=== PATIENT | male | born 1995 | race Caucasian/White ===

== ENCOUNTER 2016-06-27 15:42 | Emergency (ER) | payer OTHER ==
[~2016-06-27] VITALS: Ht 177.8 cm; Wt 130.9 kg
[2016-06-27 19:36] LABS: EOSINOPHIL (%) 0.9 % (0-5); EOSINOPHIL COUNT 0.1 K/uL (0-0.3); HEMATOCRIT 46.7 % (38.0-50.0); IMMATURE GRANULOCYTE (%) 0.7 % (0.0-0.7); IMMATURE GRANULOCYTE COUNT 0.1 K/uL; INSTRUMENT ABS NEUTROPHIL CT 8.4 K/uL; LYMPHOCYTE COUNT 2.8 K/uL (1.0-2.8); MCV 79.3 FL (86-99); MEAN PLAT.VOLUME 9.7 uM^3 (9.0-12.4); MONOCYTE (%) 11.2 % (3-12); MONOCYTE COUNT 1.4 K/uL (0-0.8); NEUTROPHIL (%) 65.1 % (45-76); NEUTROPHIL COUNT 8.4 K/uL (1.8-6.4); PLATELET COUNT 314 K/uL (156-360); RBC DIS.WIDTH-CV 12.8 % (11.8-14.6); RED BLOOD COUNT 5.89 M/uL (4.00-5.50); WHITE BLOOD COUNT 12.9 K/uL (4.1-10.2)
[2016-06-27 20:14] VITALS: BP 148/103
== END 2016-06-27 20:15 | disposition home or self-care (01) ==
LOC: EME 15:42
PROVIDERS: Emergency Medicine
PROC: 3E0S3GC Introduction of Other Therapeutic Substance into Epidural Space, Percutaneous Approach (ICD-10-PCS; principal; 2016-06-27)
DX: G97.1 Other reaction to spinal and lumbar puncture (principal); Y84.4 Aspiration of fluid as the cause of abnormal reaction of the patient, or of later complication, without mention of misadventure at the time of the procedure; D72.829 Elevated white blood cell count, unspecified; Z86.61 Personal history of infections of the central nervous system
CPT/HCPCS: 77003; 85025; 99281; 99285; C1755; J0780; J1200; J1885